=== PATIENT | female | born 1960 | race Caucasian/White ===

== ENCOUNTER 2019-02-09 17:54 | Emergency (ER) | payer OTHER ==
[~2019-02-09] VITALS: Ht 170.2 cm; Wt 80.7 kg
[2019-02-09] MEDS ORDERED: QVAR REDIHALE10.6 G1 (18:18)
[2019-02-09] MEDS ORDERED: VENTOLIN HFA18 GM (18:18)
[2019-02-10] MEDS ORDERED: ZYNCOF 20-400120 ML PO (00:36)
[2019-02-10] MEDS ORDERED: SINGULAIR 10MG10 MG PO (00:36)
== END 2019-02-10 00:53 | disposition home or self-care (01) ==
LOC: ER 17:54
DX: J45.998 Other asthma (principal)